=== PATIENT | female | born 1985 | race Hispanic/Latino ===

== ENCOUNTER 2019-02-16 21:57 | Emergency (ER) | payer MEDICAID, OTHER ==
[2019-02-16] MEDS ORDERED: KETOROLAC TROMETHAMINE 60 MG/2 ML VIAL ONE (22:42)
[2019-02-16] MEDS ORDERED: HYDROCODONE/ACETAMINOPHEN 10/325 MG TAB ONE (22:43)
== END 2019-02-16 23:11 | disposition home or self-care (01) ==
LOC: EDH 21:57
DX: K02.9 Dental caries, unspecified (principal); R68.84 Jaw pain; Z98.890 Other specified postprocedural states; Z72.0 Tobacco use
CPT/HCPCS: 96372; 99283; J1885